=== PATIENT | male | born 1990 | race African-American/Black ===

== ENCOUNTER 2017-08-14 18:44 | Emergency (ER) | payer SELFPAY ==
[2017-08-14] MEDS ORDERED: LIDOCAINE 1% INJ-PF (10 MG/ML) 30 ML SDV INJ ONE (19:00)
--- NOTE | 2017-08-14 19:04 | ER Document Report ---
ED Wound - General Chief Complaint: Laceration Stated Complaint: ARM LACERATION Time Seen by Provider: 08/14/17 18:50 Mode of Arrival: Ambulatory Information source: Patient - HPI Patient complains to provider of: Laceration Occurred: Just prior to arrival Notes: Patient is here with complaints laceration of the right forearm. 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 States that he really did not even notice that it happened until someone told him he was bleeding. No fever. No numbness, tingling, weakness. Full range of motion of the fingers and hand. Normal cap refill. He denies any other injury. Immunizations are up-to-date. No chest pain or shortness of breath. No nausea, vomiting, diarrhea. No other complaints. - Related Data Allergies/Adverse Reactions: No Known Allergies Allergy (Unverified 08/14/17 18:46) Past Medical History - Social History Smoking Status: Unknown if Ever Smoked Family History: Reviewed & Not Pertinent Review of Systems - Review of Systems -: Yes All other systems reviewed and negative Physical Exam - Notes Notes: GENERAL: alert, cooperative, nontoxic, no distress. HEAD: normocephalic, atraumatic EYES: conjunctiva pink without discharge, no external redness or swelling. EARS: no external swelling, no external redness NOSE: atraumatic, no external swelling MOUTH/THROAT: mucous membranes moist and pink NECK: soft, supple, full range of motion, no meningismus. CHEST: no distress, lungs clear and equal throughout. No wheezing, rales, rhonchi. CARDIAC: regular rate and rhythm, no murmur, normal capillary refill, normal pulses. BACK: full range of motion, no CVA tenderness. EXTREMITIES: full range of motion of all extremities. No redness, no swelling. NEURO: alert and oriented 3, no focal deficits, full range of motion of all extremities. PYSCH: appropriate mood, affect. Patient is cooperative. SKIN: pink, warm, dry, no rash. 7 cm laceration to the ulnar aspect of the right forearm. This is just into the subcutaneous tissue. No tendon laceration. No foreign body. Full flexion and extension of the wrist and hand. Normal cap refill and sensation. Normal pulse. No active bleeding. Course - Re-evaluation Re-evalutation: 08/14/17 19:55 Patient is nontoxic-appearing with stable vitals. Patient is here with a laceration of the right forearm that he sustained while playing football. He states that he was running the football when a player's helmet cut his forearm. He denies any deep bone type pain. Is noted to have a 7 cm laceration to the form. Immunizations are up-to-date. Bleeding is controlled. No numbness, tingling, weakness. There is no foreign body. No tendon laceration. No other injuries. Patient's laceration was closed with 10 sutures. Sterile dressing was applied. The patient will be discharged home with wound care instructions, follow-up in 10-12 days for suture removal, follow-up sooner for increasing pain , fever, redness, drainage, numbness, tingling, weakness, any further concerns. Compartments are soft. The patient's emergency department workup and current diagnosis were explained to the patient and or family. Follow-up instructions were provided. Medications if prescribed were discussed. Instructions for when to return to the emergency department including specific worrisome symptoms were discussed with the patient and/or family. Procedures - Laceration/Wound Repair right forearm Wound length (cm): 7 Wound's Depth, Shape: Superficial, Linear Laceration pre-procedure: Sterile PPE donned, Sterile drapes applied, Shur- Clens applied Anesthetic type: 1% Lidocaine Wound explored: Clean, No foreign body removed Irrigated w/ Saline (mLs): 100 Wound Repaired With: Sutures Suture Size/Type: 4:0, Ethilon Number of Sutures: 10 Layer Closure?: No Post-procedure wound care: Sterile dressing applied Post-procedure NV exam normal: Yes Complications: No Discharge - Discharge Clinical Impression: Laceration of right forearm Qualifiers: Encounter type: initial encounter Qualified Code(s): S51.811A - Laceration without foreign body of right forearm, initial encounter Condition: Stable Disposition: HOME, SELF-CARE Instructions: Antibiotic Ointment Protection ([facility]), Laceration Care ([facility]), Soap Cleansing ([facility]) Additional Instructions: Clean wound twice a day with soap and water. Apply thin layer of bacitracin antibiotic ointment. Follow-up in 10-12 days for suture removal. Follow-up sooner for increasing pain, fever, redness, drainage, numbness, tingling, weakness, any further concerns. Forms: Smoking Cessation Education Referrals: [facility] [Provider Group] - Follow up as needed
== END 2017-08-14 20:09 | disposition home or self-care (01) ==
LOC: ER 18:44
DX: S51.811A Laceration without foreign body of right forearm, initial encounter (principal); W21.81XA Striking against or struck by football helmet, initial encounter; Y93.61 Activity, american tackle football
CPT/HCPCS: 99282; 12002; J3490